=== PATIENT | female | born 1945 | race Caucasian/White ===

== ENCOUNTER 2018-09-04 15:17 | Inpatient (IN) | payer MEDICARE, OTHER ==
[2018-09-04] MEDS ORDERED: 0.9 % SODIUM CHLORIDE 1,000 ML IV ONE (15:37)
[2018-09-04] MEDS ORDERED: ACETAMINOPHEN 500 MG TABLET PO ONE (15:37)
[2018-09-04] MEDS ORDERED: IPRATROPIUM/ALBUTEROL SULFATE 3 ML AMPUL.NEB NEB STA (15:37)
[2018-09-04 16:44] LABS: BASOPHILS % 0.6 (0.0-1.5); EOSINOPHILS % 1.2 % (0.0-6.8); MEAN CORPUSCULAR HEMOGLOBIN 29.6 pg (28.0-34.0); MONOCYTES % 9.4 % (0.0-11.0); NEUTROPHILS # 10.5 # k/uL (1.4-7.7)
[2018-09-04 16:48] LABS: eGFR (Non-African) > 60
[2018-09-04] MEDS ORDERED: methylPREDNISolone SOD SUCC 125 MG/2 ML VIAL IVP ONE (16:58)
--- NOTE | 2018-09-04 17:14 | ED Physician Documentation ---
Dyspnea - HISTORIAN Historian: patient - HPI Stated Complaint: SOA/fever Chief Complaint: Dyspnea Duration: continues in ED, worse Initiating Event: upper respiratory illness Severity: moderate Exacerbated By: exertion, coughing Associated Symptoms: chills, fever, productive cough Further Comments: yes (73 year old female patient presents with complaints of cough, congestion and dyspnea. On arrival with 2L NC, sat 84%, RR 26-30.) - ROS CONST: no problems EYES/ENT: none GI/: none NEURO/PSYCH: denies: headache MS/SKIN/LYMPH: none - PAST HX Lung Disease: COPD, other (hypothyroidism, home O2, DM, Graves, COPD, ) Surgeries/Procedures: cholecystectomy, other (Thyroidectomy) Other History: other (anemia) Allergies/Adverse Reactions: Allergies Allergy/AdvReac Type Severity Reaction Status Date / Time No Known Allergies Allergy Verified 09/04/18 15:41 - SOCIAL HX Smoking History: non-smoker - FAMILY HX Family History: denies: none - VITAL SIGNS Vital Signs: Vital Signs Temp Pulse Resp BP Pulse Ox 101.6 F H 97 H 24 139/54 98 09/04/18 16:23 09/04/18 16:23 09/04/18 16:23 09/04/18 16:23 09/04/18 16:23 - REVIEWED ASSESSMENTS Nursing Assessment Reviewed: Yes Vitals Reviewed: Yes Progress - Progress Progress: lab and chest xray results completed. Will ambulate patient with O2 and check Sat. Patient ambulated in [place] with 2L NC - Sat down to 84%, tachypnea noted. Recommended admission. Patient prefers admission here. Does not want to transfer. Call to Dr Damon - accepted for admission to med surg. Orders to start Azithromycin and Rocephin. ED Results Lab/Radiology - Lab Results Lab Results: Lab Results 09/04/18 09/04/18 09/04/18 15:30 15:30 15:30 WBC 12.80 K/ul H K/ul (4.00-12.00) RBC 4.15 M/ul M/ul (3.90-5.20) Hgb 12.3 g/dL g/dL (12.0-16.0) Hct 37.5 % % (34.5-46.5) MCV 90.0 fl fl (80.0-100.0) MCH 29.6 pg pg (28.0-34.0) MCHC 32.7 g/dL g/dL (30.0-36.0) RDW 15.2 % H % (11.3-14.3) Plt Count 244 K/mm3 K/mm3 (130-400) Neut % (Auto) 81.8 % H % (39.0-79.0) Lymph % (Auto) 7.0 % L % (16.0-50.0) [place] % (Auto) 9.4 % % (0.0-11.0) Eos % (Auto) 1.2 % % (0.0-6.8) Baso % (Auto) 0.6 (0.0-1.5) Neut # (Auto) 10.5 # k/uL H # k/uL (1.4-7.7) Lymph # (Auto) 0.9 # k/uL # k/uL (0.6-4.0) [place] # (Auto) 1.2 # k/uL H # k/uL (0.0-0.9) Eos # (Auto) 0.2 # k/uL # k/uL (0.0-0.6) Baso # (Auto) 0.1 # k/uL # k/uL (0.0-0.5) Sodium 141 mmol/L mmol/L (136-145) Potassium 3.9 mmol/L mmol/L (3.5-5.1) Chloride 96 mmol/L L mmol/L (98-107) Carbon Dioxide 33 mmol/L H mmol/L (22-30) BUN 12 mg/dL mg/dL (7-17) Creatinine 1.00 mg/dL mg/dL (0.52-1.04) Estimated Creat Clear 63 Est GFR ( Amer) > 60 (60 - ) Est GFR (Non-Af Amer) > 60 (60 - ) Glucose 129 mg/dL H mg/dL (74-106) Lactate 1.7 U/L U/L (0.7-2.1) Calcium 10.2 mg/dL mg/dL (8.4-10.2) Total Bilirubin 1.0 mg/dL mg/dL (0.2-1.3) AST 35 U/L U/L (15-46) ALT 17 U/L U/L (13-69) Alkaline Phosphatase 60 U/L U/L (38-126) Total Protein 7.8 g/dL g/dL (6.3-8.2) Albumin 4.5 g/dL g/dL (3.5-5.0) - Radiology Radiology Impressions: PA and lateral chest History: Cough and weakness PA and lateral chest dated September 04, 2018 is without prior radiographs for comparison. Heart size is normal. There is mild aortic atherosclerosis. Pulmonary vascularity is normal. Prominent interstitial markings are present at both lung bases, age indeterminate. These findings could indicate mild chronic underlying interstitial lung disease but could also indicate mild interstitial pneumonic infiltrates. There is no lobar consolidation or pleural effusion. Impression: Age-indeterminate mildly prominent interstitial markings at both lung bases as described. Electronically signed on Sep 04, 2018 5:29:23 PM TECHNICAL MANAGER [employer]ICAL PLANT by: Abby Mays - Orders Orders: ED Orders Category Date Time Status CHEST 2VIEW [RAD] Stat Exams 09/04/18 15:38 Taken BLOOD CULTURE Stat Lab 09/04/18 13:00 Received CBC/PLATELET/DIFF Stat Lab 09/04/18 15:30 Completed CMP Stat Lab 09/04/18 15:30 Completed INFLUENZA A&B Stat Lab 09/04/18 15:38 Ordered LACTATE Stat Lab 09/04/18 15:30 Completed 0.9 % Sodium Chloride [Normal Saline] 1,000 ml Med 09/04/18 15:37 Discontinued IV NOW Acetaminophen [Tylenol Extra Strength] Med 09/04/18 15:37 Discontinued 1,000 mg PO NOW ONE Ipratropium/Albuterol Sulfate [Duoneb] Med 09/04/18 15:37 Discontinued 3 ml NEB STAT STA methylPREDNISolone SOD SUCC [Solu-MEDROL] Med 09/04/18 16:58 Discontinued 125 mg IVP NOW ONE Dyspnea Physical Exam - EXAM General Appearance: moderate distress EENT: KYLE Respiratory: no resp. distress, breath sounds nml, no pain on inspiration, decreased air movement (bases), wheezes (expiratory), other (O2 at 2L; sat up to 94-95% lying on stretcher. ) CVS: reg. 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
[2018-09-04] MEDS ORDERED: AZITHROMYCIN 500 MG in 0.9 % SODIUM CHLORIDE 250 ML IV ONE (18:22)
[2018-09-04] MEDS ORDERED: cefTRIAXone SODIUM 1 GM in 0.9 % SODIUM CHLORIDE(MINIBAG+ 50 ML IV SCH (19:00)
--- NOTE | 2018-09-04 19:14 | History and Physical Report ---
History of Present Illnes - History of Present Illness Reason for Visit: dyspnea History of Present Illness: 73yo white female with two day history of SOB, cough that is productive of white phlegm, no blood noted. Mild low grade fever, no chill noted. NO chest pain, no wheezing noted. Granddaughter and grandson have been ill also. Has had a mild sore throat and head congestion. COPD history. Wear oxygen at home at 2 liters. Has not smoked for 1 week. Usually smokes 3-4 a day. - Past Medical History Cardiac: denies: CAD, HTN Pulmonary: COPD Endocrine: Diabetes, Hyperthyroidism - Past Surgical History Past Surgical History: Appendectomy, Cholecystectomy - Past Family History Mother Family History: (89yo), Other (unknown) Father Family History: (65yo), Other (unknown) Brother 2 Family History: None (good health) Sister 1 Family History: Brother 1 Family History: None (good health) - Past Social History Smoke: <1 pack per day (07/05 ppd) Alcohol: None Drugs: None Lives: With Family - Health Maintenance Health Maintenance: denies: Influenza Vaccine, Pneumococcal Vaccine Influenza Vaccine: No Pneumonia Vaccine: No Resuscitation Status: Resusciation Status Resuscitation Status Full Code - Unable to Obtain History Unable to Obtain: No Review of Systems - Review of Systems Constitutional: Fever, Weakness. negative: Chills, Sweats Eyes: negative: pain, vision change ENT: Nose Discharge, Nose Congestion. negative: Ear Pain, Ear Discharge Respiratory: Cough, Shortness of Breath, SOB with Excertion, Sputum. negative: Hemoptysis, Wheezing Cardiovascular: negative: Chest Pain, Palpitations, Orthopnea, Light Headedness Gastrointestinal: negative: Nausea, Vomiting, Abdominal Pain, Diarrhea, Constipation, Melena, Hematochezia, Deferred Genitourinary: negative: Dysuria, Frequency, Incontinence, Hematuria Musculoskeletal: negative: Neck Pain, Shoulder Pain, Back Pain Skin: negative: Rash Neurological: negative: Weakness - Medications/Allergies Allergies/Adverse Reactions: Allergies Allergy/AdvReac Type Severity Reaction Status Date / Time No Known Allergies Allergy Verified 09/04/18 15:41 Home Medications: Home Medications Albuterol Sulfate [Proair Hfa] 2 puff INH QID PRN 09/04/18 Duloxetine HCl 60 mg PO DAILY 09/04/[address] [facility] [Atrovent INH Soln] 2.5 mcg INH BID 09/04/18 Levothyroxine Sodium 100 mg PO DAILY 09/04/18 Methimazole 10 mg PO DAILY 09/04/18 Sitagliptin Phosphate [Januvia] 50 mg PO DAILY 09/04/18 Current Inpatient Medications: Current Inpatient Medications Albuterol/Ipratropium (Duoneb) 3 ml NEB Q6H [facility] Azithromycin (Zithromax) 250 mg PO DAILY [facility] Stop: 09/08/18 08:59 Azithromycin 500 mg/ Sodium (Chloride) 250 mls @ 125 mls/hr IV NOW ONE Stop: 09/04/18 20:21 Last Admin: 09/04/18 18:30 Dose: 125 mls/hr Ceftriaxone Sodium 1 gm/ (Sodium Chloride) 50 mls @ 100 mls/hr IV DAILY [facility] Ceftriaxone Sodium 1 gm/ (Sodium Chloride) 50 mls @ 100 mls/hr IV DAILY [facility] Methylprednisolone Sodium Succinate (Solu-Medrol) 62.5 mg IVP Q12 [facility] Exam - Exam Vital Signs: Vital Signs (72 hours) 09/04/18 09/04/18 09/04/18 15:17 16:23 18:35 Temperature 102.3 F H 101.6 F H 99.0 F Pulse Rate [ 110 H 97 H 91 H Apical] Respiratory 26 H 24 24 Rate Blood Pressure 158/55 139/54 143/76 [Right Arm] O2 Sat by Pulse 84 L 98 98 Oximetry General: Alert, Oriented to Person, Oriented to Place, Oriented to Time, Cooperative, Mild distress HEENT: Atraumatic, PERRLA, EOMI, Mouth Mucous membr. moist/[place], Nose Mucous membr. moist/[place]. No: Abnormal Pupil, Decreased Hearing Acuity, Pharyngeal Erythema Neck: Normal Range of Motion Carotids: WNL Thyroid: WNL Lungs: Clear to auscultation, Normal air movement, Speaks full Sentences Cardiovascular: Regular rate (occasional skip beat), Normal S1, Normal S2, No murmurs Abdomen: Normal bowel sounds, Soft, No tenderness, No hepatospenomegaly, No masses, Other (mild diffuse tenderness from coughing) Integumentary: Normal, [place], Warm, Dry Extremities: No clubbing, No cyanosis, No edema, Normal pulses, No tenderness/swelling Neurological: Normal gait, Normal speech, Strength Equal Bilat, Normal tone, Sensation intact, Cranial nerves 3-12 NL, Reflexes 2+ Psych/Mental Status: Mental status NL, Mood NL, Appropriate Affect, Intact Judgment - Laboratory Results Laboratory Results: Laboratory Results 09/04/18 09/04/18 09/04/18 15:30 15:30 15:30 WBC 12.80 H RBC 4.15 Hgb 12.3 Hct 37.5 MCV 90.0 MCH 29.6 MCHC 32.7 RDW 15.2 H Plt Count 244 Neut % (Auto) 81.8 H Lymph % (Auto) 7.0 L [place] % (Auto) 9.4 Eos % (Auto) 1.2 Baso % (Auto) 0.6 Neut # (Auto) 10.5 H Lymph # (Auto) 0.9 [place] # (Auto) 1.2 H Eos # (Auto) 0.2 Baso # (Auto) 0.1 Sodium 141 Potassium 3.9 Chloride 96 L Carbon Dioxide 33 H BUN 12 Creatinine 1.00 Estimated Creat Clear 63 Est GFR ( Amer) > 60 Est GFR (Non-Af Amer) > 60 Glucose 129 H Lactate 1.7 Calcium 10.2 Total Bilirubin 1.0 AST 35 ALT 17 Alkaline Phosphatase 60 Total Protein 7.8 Albumin 4.5 Assessment/Plan - Assessment/Plan (1) Type 2 diabetes mellitus Status: Chronic Current Visit: Yes Qualifiers: Diabetes mellitus penitentiary insulin use: without exterminator use Diabetes mellitus complication status: without complication Qualified Code(s): E11.9 - Type 2 diabetes mellitus without complications Assessment: Continue Januvia, chem sticks QID with sliding scale (2) Hypothyroidism Status: Chronic Current Visit: Yes Qualifiers: Hypothyroidism type: acquired Qualified Code(s): E03.9 - Hypothyroidism, unspecified Assessment: continue levothyroxine (3) COPD exacerbation Status: Acute Current Visit: Yes Assessment: DUo neb, IV steroid, IV antibiotics for possible bronchitis VTE Assessment - RISK FACTOR SCORE VTE RISK FACTOR SCORES: AGE OVER 60 YEARS, ACUTE RESPIRATORY FAILURE/SEVERE COPD - RISK VTE MODERATE RISK: SCORE OF 2 (RISK PROXIMAL DVT 2-4%) PROPHYAXIS NEEDED (Lovenox 30mg sq q day, SCD applied)
[2018-09-04] MEDS: ENOXAPARIN SODIUM 30 MG/0.3 ML DISP.SYRIN SQ SCH (20:10)
[2018-09-04] MEDS: DULoxetine HCL 30 MG CAPSULE.DR PO SCH (20:10)
[2018-09-04] MEDS: IPRATROPIUM/ALBUTEROL SULFATE 3 ML AMPUL.NEB NEB SCH (20:18)
[2018-09-04 21:17] VITALS: BMI 26.8
[2018-09-04] MEDS: INSULIN REGULAR, HUMAN 100 UNIT/ML 3ML VIAL SQ SCH (22:32)
[2018-09-05] MEDS: IPRATROPIUM/ALBUTEROL SULFATE 3 ML AMPUL.NEB NEB SCH ×4 (01:54→22:04)
--- NOTE | 2018-09-05 06:29 | Diagnostic Imaging Report ---
YUNI PATEL (DOOR ASSEMBLER) - ER [facility] [address] [facility] [address] [place], [place]. [address] Report Submission Date: Sep 04, 2018 5:29:23 PM ENERGY TRADER Patient Study Name: SONYA SAVAGE Date: Sep 04, 2018 4:25:49 PM ENERGY TRADER Modality Type: DX Gender: F Description: CHEST 2VIEW : 41 Institution: [facility] Physician: YUNI PATEL (CAITLYN) - ER PA and lateral chest History: Cough and weakness PA and lateral chest dated September 04, 2018 is without prior radiographs for comparison. Heart size is normal. There is mild aortic atherosclerosis. Pulmonary vascularity is normal. Prominent interstitial markings are present at both lung bases, age indeterminate. These findings could indicate mild chronic underlying interstitial lung disease but could also indicate mild interstitial pneumonic infiltrates. There is no lobar consolidation or pleural effusion. Impression: Age-indeterminate mildly prominent interstitial markings at both lung bases as described. Electronically signed on Sep 04, 2018 5:29:23 PM ENERGY TRADER by: Abby SCHUSTER
[2018-09-05 07:08] LABS: MEAN CORPUSCULAR HEMOGLOBIN 29.6 pg (28.0-34.0)
[2018-09-05 07:09] LABS: BASOPHILS % 0.3 (0.0-1.5); EOSINOPHILS % 0.8 % (0.0-6.8); NEUTROPHILS # 5.3 # k/uL (1.4-7.7)
[2018-09-05] MEDS: INSULIN REGULAR, HUMAN 100 UNIT/ML 3ML VIAL SQ SCH ×4 (07:23→21:44)
[2018-09-05 07:44] LABS: eGFR (Non-African) > 60
[2018-09-05] MEDS ORDERED: SITAGLIPTIN PHOSPHATE 50 MG TABLET PO ONE (08:01)
[2018-09-05] MEDS ORDERED: AZITHROMYCIN 250 MG TABLET PO ONE (08:01)
[2018-09-05] MEDS ORDERED: ENOXAPARIN SODIUM 30 MG/0.3 ML DISP.SYRIN SQ ONE (08:01)
[2018-09-05] MEDS: AZITHROMYCIN 250 MG TABLET PO SCH (08:52)
[2018-09-05] MEDS: SITAGLIPTIN PHOSPHATE 50 MG TABLET PO SCH (08:52)
[2018-09-05] MEDS: ENOXAPARIN SODIUM 30 MG/0.3 ML DISP.SYRIN SQ SCH ×2 (08:52→21:41)
[2018-09-05] MEDS: cefTRIAXone SODIUM 1 GM in 0.9 % SODIUM CHLORIDE(MINIBAG+ 50 ML IV SCH (08:54)
[2018-09-05] MEDS: LEVOTHYROXINE SODIUM 100 MCG TABLET PO SCH (08:54)
[2018-09-05] MEDS: methylPREDNISolone SOD SUCC 125 MG/2 ML VIAL IVP SCH ×2 (09:28→22:06)
[2018-09-05] MEDS ORDERED: PNEUMOCOCCAL 23-VAL IM ONE (10:00)
[2018-09-05] MEDS: METHIMAZOLE 10 MG TABLET PO SCH (12:10)
[2018-09-05] MEDS: DULoxetine HCL 30 MG CAPSULE.DR PO SCH (21:41)
[2018-09-06] MEDS: IPRATROPIUM/ALBUTEROL SULFATE 3 ML AMPUL.NEB NEB SCH ×4 (02:22→18:40)
--- NOTE | 2018-09-06 07:11 | Inpatient Progress Note ---
Subjective - Required Recertification Statement I anticipate X number of days because-include discharge plan: 1 day - Review of Systems Events since last encounter: Patient states she is gradually improving. Patient did try to ambulate in the hallway with oxygen yesterday and did be sat down to 88%. Patient was able to recover quickly. Patient denies any chest pain or chest pressure. Patient blood sugars have been stable. Patient denies any hyper hypoglycemic episodes. Objective - Exam Vitals and I&O: Vital Signs Temp 98.1 F 09/06/18 05:52 Pulse 88 09/06/18 05:52 Resp 16 09/06/18 05:52 BP 116/48 09/06/18 05:52 Pulse Ox 95 09/06/18 05:52 Intake & Output 09/05/18 09/05/18 09/06/18 11:59 23:59 11:59 Intake Total 560 350 0 Output Total 6040 351 2297 Balance -640 50 -1200 Intake: IV 10 0 Right Forearm 10 0 Oral 560 340 Output: Urine 5272 690 0810 Other: Voiding Method Toilet Toilet Toilet # Voids 1 2 # Bowel Movements 0 General: Alert, Oriented to Person, Oriented to Place, Oriented to Time, Cooperative Neck: Supple, No JVD, No thyromegaly Lungs: Speaks full Sentences, Respiratory Distress (mild), Rales, Rhonchi. No: Wheezes Cardiovascular: Regular rate, Normal S1, Normal S2 Neurological: Normal speech Psych/Mental Status: Mental status NL, Mood NL - Results Results: Laboratory Results WBC 6.10 K/ul (4.00-12.00) 09/05/18 06:00 RBC 3.75 M/ul (3.90-5.20) L 09/05/18 06:00 Hgb 11.1 g/dL (12.0-16.0) L 09/05/18 06:00 Hct 33.6 % (34.5-46.5) L 09/05/18 06:00 MCV 89.0 fl (80.0-100.0) 09/05/18 06:00 MCH 29.6 pg (28.0-34.0) 09/05/18 06:00 MCHC 33.1 g/dL (30.0-36.0) 09/05/18 06:00 RDW 14.9 % (11.3-14.3) H 09/05/18 06:00 Plt Count 190 K/mm3 (130-400) 09/05/18 06:00 Neut % (Auto) 87.0 % (39.0-79.0) H 09/05/18 06:00 Lymph % (Auto) 9.9 % (16.0-50.0) L 09/05/18 06:00 [place] % (Auto) 2.0 % (0.0-11.0) 09/05/18 06:00 Eos % (Auto) 0.8 % (0.0-6.8) 09/05/18 06:00 Baso % (Auto) 0.3 (0.0-1.5) 09/05/18 06:00 Neut # (Auto) 5.3 # k/uL (1.4-7.7) 09/05/18 06:00 Lymph # (Auto) 0.6 # k/uL (0.6-4.0) 09/05/18 06:00 [place] # (Auto) 0.1 # k/uL (0.0-0.9) 09/05/18 06:00 Eos # (Auto) 0.1 # k/uL (0.0-0.6) 09/05/18 06:00 Baso # (Auto) 0.0 # k/uL (0.0-0.5) 09/05/18 06:00 Sodium 142 mmol/L (136-145) 09/05/18 06:00 Potassium 3.8 mmol/L (3.5-5.1) 09/05/18 06:00 Chloride 103 mmol/L (98-107) 09/05/18 06:00 Carbon Dioxide 30 mmol/L (22-30) 09/05/18 06:00 BUN 14 mg/dL (7-17) 09/05/18 06:00 Creatinine 0.72 mg/dL (0.52-1.04) 09/05/18 06:00 Estimated Creat Clear 88 09/05/18 06:00 Est GFR ( Amer) > 60 (60-) 09/05/18 06:00 Est GFR (Non-Af Amer) > 60 (60-) 09/05/18 06:00 Glucose 189 mg/dL (74-106) H 09/05/18 06:00 Lactate 1.7 U/L (0.7-2.1) 09/04/18 15:30 Calcium 9.0 mg/dL (8.4-10.2) 09/05/18 06:00 Total Bilirubin 0.5 mg/dL (0.2-1.3) 09/05/18 06:00 AST 35 U/L (15-46) 09/05/18 06:00 ALT 14 U/L (13-69) 09/05/18 06:00 Alkaline Phosphatase 53 U/L (38-126) 09/05/18 06:00 Total Protein 6.6 g/dL (6.3-8.2) 09/05/18 06:00 Albumin 3.6 g/dL (3.5-5.0) 09/05/18 06:00 Influenza Type A Ag Negative (NEGATIVE) 09/04/18 15:49 Influenza Type B Ag Negative (NEGATIVE) 09/04/18 15:49 Assessment/Plan - Assessment/Plan (1) COPD exacerbation Status: Acute Assessment: Improved but patient is still having some destatting with exertion. The patient further IVs steroid. Hopefully by tomorrow should be ready to go home. (2) Type 2 diabetes mellitus Status: Chronic Qualifiers: Diabetes mellitus penitentiary insulin use: without penitentiary use Diabetes mellitus complication status: with ophthalmic complications Assessment: Stable on current medications. (3) Hypothyroidism Status: Chronic Qualifiers: Hypothyroidism type: acquired Qualified Code(s): E03.9 - Hypothyroidism, unspecified
--- NOTE | 2018-09-06 07:12 | Inpatient Progress Note ---
Subjective - Required Recertification Statement I anticipate X number of days because-include discharge plan: 2 days - Review of Systems Events since last encounter: Patient states she does seem to be doing some better at this time. However when patient gets up and ambulate or goes to the bathroom she does get short of breath even on oxygen therapy. Patient stated she has had a mild cough but does seem to be getting a little bit more productive at this time. Blood sugars have been stable without any hyper or hypoglycemic episodes. Objective - Exam Vitals and I&O: Vital Signs Temp 98.1 F 09/06/18 05:52 Pulse 88 09/06/18 05:52 Resp 16 09/06/18 05:52 BP 116/48 09/06/18 05:52 Pulse Ox 95 09/06/18 05:52 Intake & Output 09/05/18 09/05/18 09/06/18 11:59 23:59 11:59 Intake Total 560 350 0 Output Total 6636 647 5829 Balance -640 50 -1200 Intake: IV 10 0 Right Forearm 10 0 Oral 560 340 Output: Urine 0545 194 0120 Other: Voiding Method Toilet Toilet Toilet # Voids 1 2 # Bowel Movements 0 General: Alert, Oriented to Person, Oriented to Place, Oriented to Time Lungs: Normal air movement, Speaks full Sentences, Wheezes, Rhonchi (few scattered) Cardiovascular: Regular rate, Normal S1, Normal S2, No murmurs Abdomen: Normal bowel sounds, Soft, No tenderness Skin: Normal, [place], Warm Psych/Mental Status: Mental status NL, Mood NL, Appropriate Affect - Results Results: Laboratory Results WBC 6.10 K/ul (4.00-12.00) 09/05/18 06:00 RBC 3.75 M/ul (3.90-5.20) L 09/05/18 06:00 Hgb 11.1 g/dL (12.0-16.0) L 09/05/18 06:00 Hct 33.6 % (34.5-46.5) L 09/05/18 06:00 MCV 89.0 fl (80.0-100.0) 09/05/18 06:00 MCH 29.6 pg (28.0-34.0) 09/05/18 06:00 MCHC 33.1 g/dL (30.0-36.0) 09/05/18 06:00 RDW 14.9 % (11.3-14.3) H 09/05/18 06:00 Plt Count 190 K/mm3 (130-400) 09/05/18 06:00 Neut % (Auto) 87.0 % (39.0-79.0) H 09/05/18 06:00 Lymph % (Auto) 9.9 % (16.0-50.0) L 09/05/18 06:00 [place] % (Auto) 2.0 % (0.0-11.0) 09/05/18 06:00 Eos % (Auto) 0.8 % (0.0-6.8) 09/05/18 06:00 Baso % (Auto) 0.3 (0.0-1.5) 09/05/18 06:00 Neut # (Auto) 5.3 # k/uL (1.4-7.7) 09/05/18 06:00 Lymph # (Auto) 0.6 # k/uL (0.6-4.0) 09/05/18 06:00 [place] # (Auto) 0.1 # k/uL (0.0-0.9) 09/05/18 06:00 Eos # (Auto) 0.1 # k/uL (0.0-0.6) 09/05/18 06:00 Baso # (Auto) 0.0 # k/uL (0.0-0.5) 09/05/18 06:00 Sodium 142 mmol/L (136-145) 09/05/18 06:00 Potassium 3.8 mmol/L (3.5-5.1) 09/05/18 06:00 Chloride 103 mmol/L (98-107) 09/05/18 06:00 Carbon Dioxide 30 mmol/L (22-30) 09/05/18 06:00 BUN 14 mg/dL (7-17) 09/05/18 06:00 Creatinine 0.72 mg/dL (0.52-1.04) 09/05/18 06:00 Estimated Creat Clear 88 09/05/18 06:00 Est GFR ( Amer) > 60 (60-) 09/05/18 06:00 Est GFR (Non-Af Amer) > 60 (60-) 09/05/18 06:00 Glucose 189 mg/dL (74-106) H 09/05/18 06:00 Lactate 1.7 U/L (0.7-2.1) 09/04/18 15:30 Calcium 9.0 mg/dL (8.4-10.2) 09/05/18 06:00 Total Bilirubin 0.5 mg/dL (0.2-1.3) 09/05/18 06:00 AST 35 U/L (15-46) 09/05/18 06:00 ALT 14 U/L (13-69) 09/05/18 06:00 Alkaline Phosphatase 53 U/L (38-126) 09/05/18 06:00 Total Protein 6.6 g/dL (6.3-8.2) 09/05/18 06:00 Albumin 3.6 g/dL (3.5-5.0) 09/05/18 06:00 Influenza Type A Ag Negative (NEGATIVE) 09/04/18 15:49 Influenza Type B Ag Negative (NEGATIVE) 09/04/18 15:49 Assessment/Plan - Assessment/Plan (1) COPD exacerbation Status: Acute Assessment: Improving. Patient did requires oxygen therapy in order to maintain SaO2 greater than 92%. (2) Type 2 diabetes mellitus Status: Chronic Qualifiers: Diabetes mellitus terminal operator insulin use: without nursing home use Diabetes mellitus complication status: with ophthalmic complications Assessment: stable (3) Hypothyroidism Status: Chronic Qualifiers: Hypothyroidism type: acquired Qualified Code(s): E03.9 - Hypothyroidism, unspecified Assessment: stable
[2018-09-06] MEDS: ENOXAPARIN SODIUM 30 MG/0.3 ML DISP.SYRIN SQ SCH ×2 (09:02→20:33)
[2018-09-06] MEDS: guaiFENesin 600 MG TAB.ER.12H PO SCH ×2 (09:02→20:34)
[2018-09-06] MEDS: SITAGLIPTIN PHOSPHATE 50 MG TABLET PO SCH (09:02)
[2018-09-06] MEDS: LEVOTHYROXINE SODIUM 100 MCG TABLET PO SCH (09:02)
[2018-09-06] MEDS: AZITHROMYCIN 250 MG TABLET PO SCH (09:02)
[2018-09-06] MEDS: INSULIN REGULAR, HUMAN 100 UNIT/ML 3ML VIAL SQ SCH ×4 (09:03→20:35)
[2018-09-06] MEDS: cefTRIAXone SODIUM 1 GM in 0.9 % SODIUM CHLORIDE(MINIBAG+ 50 ML IV SCH (09:05)
[2018-09-06] MEDS: METHIMAZOLE 10 MG TABLET PO SCH (09:06)
[2018-09-06] MEDS: methylPREDNISolone SOD SUCC 125 MG/2 ML VIAL IVP SCH ×2 (09:13→21:34)
[2018-09-06] MEDS ORDERED: CALCIUM CARB 500 MG TAB.CHEW PO PRN (16:39)
[2018-09-06] MEDS ORDERED: CALCIUM CARB 500 MG TAB.CHEW ONE (17:00)
[2018-09-06] MEDS: DULoxetine HCL 30 MG CAPSULE.DR PO SCH (20:33)
[2018-09-07] MEDS: IPRATROPIUM/ALBUTEROL SULFATE 3 ML AMPUL.NEB NEB SCH ×2 (02:12→05:49)
--- NOTE | 2018-09-07 05:28 | Diagnostic Imaging Report ---
[facility] [address] [facility].[address] [address] Report Submission Date: Sep 06, 2018 8:27:11 AM PATTERN GRADER SUPERVISOR Patient Study Name: SONYA SAVAGE Date: Sep 06, 2018 7:40:26 AM PATTERN GRADER SUPERVISOR Modality Type: DX Gender: F Description: CHEST 2VIEW : 41 Institution: [facility] Physician: [facility] Examination: PA and lateral chest. History: Evaluate lung zayas. Comparison exam: 04 September 2018 Findings: PA and lateral views of the chest demonstrates a normal cardiac and mediastinal silhouette. Vascular calcifications involving the aortic arch. Chronic interstitial changes. No focal infiltrate. No blunting of the costophrenic margins. Stable blunting of the posterior sulci. Osseous structures are appropriate for age. Impression: Chronic parenchymal changes. No acute acute appearing pulmonary process. Electronically signed on Sep 06, 2018 8:27:11 AM PATTERN GRADER SUPERVISOR by: Rickey SCHUSTER
[2018-09-07] MEDS: INSULIN REGULAR, HUMAN 100 UNIT/ML 3ML VIAL SQ SCH (07:31)
--- NOTE | 2018-09-07 08:33 | Discharge Summary ---
Discharge Summary - Discharge Sumary History of Present Illness: 73yo white female with two day history of SOB, cough that is productive of white phlegm, no blood noted. Mild low grade fever, no chill noted. NO chest pain, no wheezing noted. Granddaughter and grandson have been ill also. Has had a mild sore throat and head congestion. COPD history. Wear oxygen at home at 2 liters at [facility]. Has not smoked for 1 week. Usually smokes 3-4 a day. Condition at Discharge: Stable Home Medications: Ambulatory Orders Medication Instructions Recorded Albuterol Sulfate [Proair Hfa] 2 puff INH QID PRN 09/04/18 Duloxetine HCl 60 mg PO DAILY 09/04/18 Levothyroxine Sodium 100 mg PO DAILY 09/04/18 Methimazole 10 mg PO DAILY 09/04/18 Sitagliptin Phosphate [Januvia] 50 mg PO DAILY 09/04/18 Azithromycin [Zithromax] 250 mg PO DAILY #3 tablet 09/07/18 Cefuroxime Axetil [Ceftin] 500 mg PO BID #28 tablet 09/07/18 Ipratropium/Albuterol Sulfate 3 ml NEB Q6H ampul.banner 09/07/18 [Duoneb] Prednisone 10 mg PO DIRECTED #36 tablet 09/07/18 Consultations this Visit: None Allergies/Adverse Reactions: Allergies Allergy/AdvReac Type Severity Reaction Status Date / Time No Known Allergies Allergy Verified 09/04/18 15:41 Discharge Summary: Patient had a chest x-ray done and did not show any acute pneumonia. Patient was negative for influenza A in the. Patient was felt to have a bronchitis with and exacerbation of COPD. Patient was started on Rocephin 1 g IV Q day and azithromycin. Patient was started on high flow nebulization treatments with at the appropriate and DuoNeb. Patient was started on IV steroid therapy. Patient did make some slow progress over the next two days. Patient did need to be maintained on oxygen at to the point leaders per nasal cannula. When patient was not exerting yourself SaO2 remained in the mid 90s. However patient did decide to 85-88 with exertion. Patient does have a history of diabetes mellitus. Blood sugars remain stable to slightly elevated with his steroid therapy. Patient was continued on her levothyroxine for her thyroid condition. - Final Diagnosis (1) COPD exacerbation Problems: Patient will be placed on some 500 mg BID for seven days and azithromycin 250 mg for three days. Patient will be started on tapering dose of prednisone over the next 16 days. Patient with is vied to continue using her treatments at home. Patient was encouraged day off of the cigarettes. Patient is to follow up with her primary care provider next week (2) Type 2 diabetes mellitus Problems: Patient will be continued on home medications. (3) Hypothyroidism Problems: Patient will be continued on home medications.
[2018-09-07] MEDS: cefTRIAXone SODIUM 1 GM in 0.9 % SODIUM CHLORIDE(MINIBAG+ 50 ML IV SCH (10:00)
[2018-09-07] MEDS: SITAGLIPTIN PHOSPHATE 50 MG TABLET PO SCH (10:00)
[2018-09-07] MEDS: AZITHROMYCIN 250 MG TABLET PO SCH (10:00)
[2018-09-07] MEDS: ENOXAPARIN SODIUM 30 MG/0.3 ML DISP.SYRIN SQ SCH (10:00)
[2018-09-07] MEDS: LEVOTHYROXINE SODIUM 100 MCG TABLET PO SCH (10:00)
[2018-09-07] MEDS: guaiFENesin 600 MG TAB.ER.12H PO SCH (10:01)
[2018-09-07] MEDS: METHIMAZOLE 10 MG TABLET PO SCH (10:04)
[2018-09-07] MEDS: methylPREDNISolone SOD SUCC 125 MG/2 ML VIAL IVP SCH (10:19)
[2018-09-07] MEDS ORDERED: PNEUMOCOCCAL 23-VAL IM ONE (10:52)
[2018-09-07 11:38] VITALS: BP 138/68
== END 2018-09-07 11:20 | disposition home or self-care (01) | DRG 192 ==
LOC: ED 15:17 → SOUTH 18:21
PROVIDERS: ADMIT Family Medicine; ATTEND Family Medicine
DX: J44.1 Chronic obstructive pulmonary disease with (acute) exacerbation (principal); E11.9 Type 2 diabetes mellitus without complications; E03.9 Hypothyroidism, unspecified; F17.210 Nicotine dependence, cigarettes, uncomplicated; Z23 Encounter for immunization
CPT/HCPCS: 71046; 80053; 83605; 85025; 87040; 87400; 90471; 90732; 94640; 99284; J0456; J0696; J1650; J2930; J7030; J7050; 99221; 99231; 99238; S1016